=== PATIENT | male | born 1955 | race Caucasian/White ===

== ENCOUNTER 2017-12-13 07:19 | Day surgery (SDC) | payer MEDICAID ==
[2017-12-13] MEDS ORDERED: Lactated Ringers 1,000 ML IV SCH (07:30)
[2017-12-13] MEDS ORDERED: Sodium Chloride 0.9% 10 ML Syringe FLUSH PRN (07:30)
[2017-12-13] MEDS ORDERED: Propofol 200 MG/20 ML SDV IV ONE (08:30)
--- NOTE | 2017-12-13 09:15 | PCM.OPNOTE ---
- General Post-Op/Procedure Note Date of Surgery/Procedure: 12/13/17 Operative Procedure(s): c scope with bx Findings: ascending colon polyp transverse colon polyps x4 sigmoid diverticulosis Pre Op Diagnosis: screening Post-Op Diagnosis: ascending colon polyp. transverse colon polyps x4. sigmoid diverticulosis Anesthesia Technique: MAC Primary Surgeon: Casper Lainez Anesthesia Provider: Ahbi Smith Pathology: ascending colon polyp transverse colon polyps x4 Complications: None Condition: Good Free Text/Narrative:: see dictation
[2017-12-13 11:11] VITALS: BP 123/68
--- NOTE | 2017-12-13 14:39 | OR ---
DATE OF OPERATION: 12/13/2017 SURGEON: Casper Lainez MD PROCEDURES PERFORMED: Colonoscopy with hot loop and cold forceps biopsy. PREOPERATIVE DIAGNOSIS: Colon cancer screening. POSTOPERATIVE DIAGNOSES: Ascending colon polyp, transverse colon polyp x4, and sigmoid diverticulosis. INDICATIONS FOR PROCEDURE: This is a 62-year-old white male who presents for screening colonoscopy. He was offered and accepted same. DESCRIPTION OF OPERATION: After an excellent IV sedation was administered, the colonoscope was inserted and advanced to the cecum without difficulty. The prep was excellent. The following findings were noted. Ascending colon, roughly 1 cm in diameter sessile polyp, biopsied with the hot loop snare and submitted for permanent. Transverse colon, in the proximal half, a total of 4 polyps were encountered, 2 of which were biopsied with the hot loop snare and 2 with cold forceps, and submitted in one container. Descending colon was unremarkable. Sigmoid, mild diverticulosis. Rectum and anus, unremarkable. Colon was deflated as the scope was removed. The patient tolerated the procedure well and was taken to Recovery in a good condition. /[id number] /MODL
== END 2017-12-13 10:08 | disposition home or self-care (01) ==
LOC: FB.SDS 07:19
PROVIDERS: ATTEND Surgery
DX: Z12.11 Encounter for screening for malignant neoplasm of colon (principal); D12.3 Benign neoplasm of transverse colon; K63.5 Polyp of colon; K57.30 Diverticulosis of large intestine without perforation or abscess without bleeding; I10 Essential (primary) hypertension; J44.9 Chronic obstructive pulmonary disease, unspecified; F17.210 Nicotine dependence, cigarettes, uncomplicated; E66.9 Obesity, unspecified; Z68.34 Body mass index [BMI] 34.0-34.9, adult; F41.9 Anxiety disorder, unspecified; Z79.51 Long term (current) use of inhaled steroids; Z79.899 Other long term (current) drug therapy; Z80.0 Family history of malignant neoplasm of digestive organs
CPT/HCPCS: 45380; 45385; 88305; J2704; J7120

== ENCOUNTER 2018-10-12 06:55 | Day surgery (SDC) | payer MEDICAID ==
[2018-10-12] MEDS ORDERED: Lidocaine 2% 100 MG/5 ML Syringe IVPUSH ONE (06:56)
[2018-10-12] MEDS ORDERED: Propofol 200 MG/20 ML SDV IV ONE (06:56)
[2018-10-12] MEDS ORDERED: Lactated Ringers 1,000 ML IV SCH (07:00)
[2018-10-12] MEDS ORDERED: Sodium Chloride 0.9% 10 ML Syringe FLUSH PRN (07:00)
[2018-10-12] MEDS ORDERED: Albuterol/Ipratropium 3.0-0.5 MG/3 ML Neb Soln NEB ONE (07:56)
--- NOTE | 2018-10-12 08:43 | PCM.OPNOTE ---
- General Post-Op/Procedure Note Date of Surgery/Procedure: 10/12/18 Operative Procedure(s): egd with bx Findings: gastritis Pre Op Diagnosis: dyspespsia Post-Op Diagnosis: gastritis determined by endoscopy Anesthesia Technique: VINITA Primary Surgeon: Casper Lainez Anesthesia Provider: Abhi Smith ([facility]) Pathology: stomach Complications: None Condition: Good Free Text/Narrative:: see dictation
[2018-10-12 09:42] VITALS: BP 107/73
--- NOTE | 2018-10-12 16:08 | OR ---
DATE OF OPERATION: 10/12/2018 SURGEON: Casper Lainez MD PROCEDURE PERFORMED: EGD with cold forceps biopsy. PREOPERATIVE DIAGNOSIS: Dyspepsia. POSTOPERATIVE DIAGNOSIS: Gastritis. INDICATIONS FOR PROCEDURE: This is a 63-year-old white male who has a known history of gastritis. He has been treated long-term without resolution of his symptoms of epigastric discomfort. He was offered and accepted an EGD. DESCRIPTION OF OPERATION: After an excellent IV sedation was administered, bite block was inserted. Flexible endoscope was passed without difficulty down the patient's esophagus, into the stomach. The stomach was insufflated. Scope was passed through the pylorus, second portion of the duodenum, and slowly withdrawn. Following findings were noted. Duodenum was unremarkable. Stomach demonstrated very mild gastritis, multiple biopsies were taken. Esophagus was unremarkable. Stomach was deflated. Scope was removed. Results by letter. /[id number] /MODL
== END 2018-10-12 09:43 | disposition home or self-care (01) ==
LOC: FB.SDS 06:55
PROVIDERS: ATTEND Surgery
DX: K29.50 Unspecified chronic gastritis without bleeding (principal); I10 Essential (primary) hypertension; J43.9 Emphysema, unspecified; J45.909 Unspecified asthma, uncomplicated; F17.210 Nicotine dependence, cigarettes, uncomplicated; F41.9 Anxiety disorder, unspecified; E66.9 Obesity, unspecified; Z68.34 Body mass index [BMI] 34.0-34.9, adult; Z79.899 Other long term (current) drug therapy; Z80.0 Family history of malignant neoplasm of digestive organs
CPT/HCPCS: 43239; J2001; J2704; J7120; 88305; 88342; J7620-GY

== ENCOUNTER 2019-12-04 06:28 | Emergency (ER) | payer MEDICARE, OTHER ==
[2019-12-04 06:45] VITALS: BP 120/63; PULSE 81
--- NOTE | 2019-12-04 06:53 | EDM.PDOC ---
ED HPI GENERAL MEDICAL PROBLEM - General Chief Complaint: Skin Complaint Stated Complaint: LESIONS Time Seen by Provider: 12/04/19 06:49 Source of Information: Reports: Patient History Limitations: Reports: No Limitations - History of Present Illness INITIAL COMMENTS - FREE TEXT/NARRATIVE: Two painful lesions in the supra pubic area. Since last Tuesday. Has tried a creaam,with no improvement lower abd Pain Score (Numeric/FACES): 5 - Related Data Allergies Allergy/AdvReac Type Severity Reaction Status Date / Time No Known Allergies Allergy Verified 10/12/18 07:18 Home Meds: Home Meds Losartan [Cozaar] 100 mg PO DAILY 10/15/13 [History] amLODIPine [Norvasc] 2.5 mg PO DAILY 10/15/13 [History] clonazePAM [Clonazepam] 1 mg PO TID 10/15/13 [History] hydroCHLOROthiazide [Hydrochlorothiazide] 12.5 mg PO DAILY 10/15/13 [History] Budesonide/Formoterol Fumarate [Symbicort 80-4.5 MCG] 2 puff INH BID 12/12/17 [History] PARoxetine HCL [Paroxetine HCl] 20 mg PO DAILY 12/12/17 [History] atorvaSTATin [Lipitor] 10 mg PO DAILY 12/12/17 [History] traZODone 100 mg PO BEDTIME PRN 12/12/17 [History] Omeprazole 20 mg PO DAILY 10/11/18 [History] Doxycycline [Vibra-Tabs] 100 mg PO Q12HR #10 tab 12/04/19 [Rx] Past Medical History HEENT History: Reports: Macular Degeneration Cardiovascular History: Reports: Hypertension Respiratory History: Reports: Asthma, Bronchitis, Recurrent, COPD Gastrointestinal History: Reports: Irritable Bowel Syndrome Musculoskeletal History: Reports: Arthritis Other Musculoskeletal History: DISPLACED FRACTURE OF PROXIMAL PHALYNX OF LEFT FINGER, INTERNAL DERANGEMENT OF KNEE Psychiatric History: Reports: Anxiety Endocrine/Metabolic History: Reports: Obesity/BMI 30+ Hematologic History: Reports: None Immunologic History: Reports: None Oncologic (Cancer) History: Reports: None Dermatologic History: Reports: Psoriasis - Infectious Disease History Infectious Disease History: Reports: Chicken Pox, Measles - Past Surgical History HEENT Surgical History: Reports: Oral Surgery, Tonsillectomy, Other (See Below) Other HEENT Surgeries/Procedures: jaw surgery, NECK SURGERY GI Surgical History: Reports: EGD Musculoskeletal Surgical History: Reports: Arthroscopic Knee Social & Family History - Caffeine Use Caffeine Use: Reports: Coffee ED ROS GENERAL - Review of Systems Review Of Systems: Comprehensive ROS is negative, except as noted in HPI. ED EXAM, SKIN/RASH Exam: See Below Text/Narrative:: Two lesions of the suprapubic area skin,red base,yellow,honey colored crusts. Slightly Tender. Exam Limited By: No Limitations General Appearance: Alert Nose: Normal Inspection Course - Vital Signs Last Recorded V/S: Last Vital Signs Temp 97.8 F 12/04/19 06:28 Pulse 81 12/04/19 06:28 Resp 17 12/04/19 06:28 BP 120/63 12/04/19 06:28 Pulse Ox 100 12/04/19 06:28 - Orders/Labs/Meds Meds: Medications Discontinued Medications Generic Name Dose Route Start Last Admin Trade Name Freq PRN Reason Stop Dose Admin Doxycycline Hyclate 1,000 mg 12/04/19 13:05 Vibra-Tabs PO 12/04/19 13:06 .STK-MED ONE Departure - Departure Time of Disposition: 06:52 Disposition: Home, Self-Care 01 Condition: Good Clinical Impression: Impetigo bullosa - Discharge Information Prescriptions: Doxycycline [Vibra-Tabs] 100 mg PO Q12HR #10 tab Instructions: Impetigo, Adult Referrals: Rohini Lee PA-C [Primary Care Provider] - Forms: ED Department Discharge Additional Instructions: please take doxycycline 100mg 1 tab twice a day for 10 days see your primary care after 10 days Sepsis Event Note (ED) - Evaluation Sepsis Screening Result: No Definite Risk - Problem List & Annotations (1) Impetigo bullosa SNOMED Code(s): 233206829 Code(s): L01.03 - BULLOUS IMPETIGO Status: Acute - Problem List Review Problem List Initiated/Reviewed/Updated: Yes - Assessment/Plan Plan: Doxy 100 mg po BID
[2019-12-04] MEDS ORDERED: Doxycycline 100 MG Tab PO ONE (13:05)
== END 2019-12-04 06:59 | disposition home or self-care (01) ==
LOC: FB.ED 06:28
DX: L01.03 Bullous impetigo (principal); I10 Essential (primary) hypertension; J44.9 Chronic obstructive pulmonary disease, unspecified; M19.90 Unspecified osteoarthritis, unspecified site; F41.9 Anxiety disorder, unspecified; E66.9 Obesity, unspecified; Z68.33 Body mass index [BMI] 33.0-33.9, adult; Z79.899 Other long term (current) drug therapy
CPT/HCPCS: 99282; A9270-GY

== ENCOUNTER 2019-12-28 15:54 | Emergency (ER) | payer MEDICARE, OTHER ==
--- NOTE | 2019-12-28 16:01 | EDM.PDOC ---
ED HPI GENERAL MEDICAL PROBLEM - General Stated Complaint: COVID SYMPTOMS Time Seen by Provider: 12/28/19 15:58 Source of Information: Reports: Patient History Limitations: Reports: No Limitations - History of Present Illness INITIAL COMMENTS - FREE TEXT/NARRATIVE: 64-year-old male who reports onset 3-4 days ago of a cough which has progressively worsened with time. 2 days ago he began to have subjective fever with sweats and cough that was worse with phlegm production. He also felt somewhat short of breath associated with this. He has had nausea but no vomiting. He developed diarrhea yesterday and that has persisted today. He has had 2 loose stools today. He reports diffuse body aches that he rates as a 7- 8/10. He also has a mild sore throat. These pains are achy-type pains. There are better rest and worse with movements. He is swallowing okay. He has been drinking liquids well. He has not had much of an appetite but he has been taking by mouth. He reports that his senses of taste and smell are both intact. He feels quite fatigued and has no energy. He does not have any chest pain other than the body ache type pain that he has all over. There are no other associated signs or symptoms. There are no other modifying factors. 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 He does use an inhaler.) - Related Data Allergies Allergy/AdvReac Type Severity Reaction Status Date / Time No Known Allergies Allergy Verified 12/28/19 16:09 Home Meds: Home Meds Losartan [Cozaar] 100 mg PO DAILY 10/15/13 [History] amLODIPine [Norvasc] 2.5 mg PO DAILY 10/15/13 [History] clonazePAM [Clonazepam] 1 mg PO TID 10/15/13 [History] hydroCHLOROthiazide [Hydrochlorothiazide] 12.5 mg PO DAILY 10/15/13 [History] Budesonide/Formoterol Fumarate [Symbicort 80-4.5 MCG] 2 puff INH BID 12/12/17 [History] PARoxetine HCL [Paroxetine HCl] 20 mg PO DAILY 12/12/17 [History] atorvaSTATin [Lipitor] 10 mg PO DAILY 12/12/17 [History] traZODone 100 mg PO BEDTIME PRN 12/12/17 [History] Omeprazole 20 mg PO DAILY 10/11/18 [History] Doxycycline [Vibra-Tabs] 100 mg PO Q12HR #10 tab 12/04/19 [Rx] Azithromycin [Zithromax] 1 dose PO DAILY 5 Days #6 tab 12/28/19 [Rx] predniSONE [Prednisone] 60 mg PO DAILY 5 Days #15 tablet 12/28/19 [Rx] Past Medical History HEENT History: Reports: Macular Degeneration Cardiovascular History: Reports: Hypertension Respiratory History: Reports: Asthma, Bronchitis, Recurrent, COPD Gastrointestinal History: Reports: Irritable Bowel Syndrome Musculoskeletal History: Reports: Arthritis Other Musculoskeletal History: DISPLACED FRACTURE OF PROXIMAL PHALYNX OF LEFT FINGER, INTERNAL DERANGEMENT OF KNEE Psychiatric History: Reports: Anxiety, Depression Endocrine/Metabolic History: Reports: Obesity/BMI 30+ Dermatologic History: Reports: Psoriasis - Infectious Disease History Infectious Disease History: Reports: Chicken Pox, Measles - Past Surgical History HEENT Surgical History: Reports: Oral Surgery, Tonsillectomy, Other (See Below) Other HEENT Surgeries/Procedures: jaw surgery, NECK SURGERY GI Surgical History: Reports: EGD Musculoskeletal Surgical History: Reports: Arthroscopic Knee (Left knee) Social & Family History - Tobacco Use Smoking Status *Q: Current Every Day Smoker - Caffeine Use Caffeine Use: Reports: Coffee - Alcohol Use Alcohol Use History: Yes Alcohol Use Frequency: Daily (1.75 L of rum every 3-4 days.) - Living Situation & Occupation Occupation: Retired ED ROS GENERAL - Review of Systems Review Of Systems: See Below Constitutional: Reports: Fever, Malaise, Weakness, Fatigue, Other (Sweats) HEENT: Reports: Throat Pain (Mild sore throat. No nasal congestion.) Respiratory: Reports: Shortness of Breath, Cough, Sputum Cardiovascular: Reports: No Symptoms GI/Abdominal: Reports: Diarrhea, Nausea. Denies: Vomiting : Reports: No Symptoms Musculoskeletal: Reports: Other (Diffuse body aches) Skin: Reports: Rash (Chronic rash associated with psoriasis. No change.) Neurological: Reports: No Symptoms Hematologic/Lymphatic: Reports: No Symptoms Immunologic: Reports: No Symptoms ED EXAM, GENERAL - Physical Exam Exam: See Below Exam Limited By: No Limitations General Appearance: Alert, Moderate Distress (Appears in some discomfort. No respiratory distress. Nontoxic otherwise.), Obese Eye Exam: Bilateral Eye: EOMI, Normal Inspection Ears: Normal External Exam, Hearing Grossly Normal Ear Exam: Bilateral Ear: Auricle Normal Nose: Normal Inspection, Normal Mucosa, No Blood Throat/Mouth: Normal Inspection, Normal Oropharynx, Normal Voice, No Airway Compromise Head: Atraumatic, Normocephalic Neck: Normal Inspection, Supple, Non-Tender, Full Range of Motion Respiratory/Chest: No Respiratory Distress, Lungs Clear, No Accessory Muscle Use, Chest Non-Tender, Other (Her movement is okay.). No: Crackles, Rales, Rhonchi, Wheezing Cardiovascular: Normal Peripheral Pulses, Regular Rate, Rhythm, No JVD, No Murmur Peripheral Pulses: 2+: Radial (L), Radial (R) GI/Abdominal: Normal Bowel Sounds, Soft, Non-Tender Back Exam: Normal Inspection Extremities: Normal Inspection, Normal Range of Motion, Non-Tender, No Pedal Edema, Normal Capillary Refill Neurological: Alert, Oriented, CN II-XII Intact, Normal Cognition, No Motor/Sensory Deficits Psychiatric: Normal Affect Skin Exam: Warm, Dry, Intact, Normal Color Lymphatic: No Adenopathy Course - Vital Signs Last Recorded V/S: Last Vital Signs Temp 36.7 C 12/28/19 16:00 Pulse 80 12/28/19 16:00 Resp 20 12/28/19 16:00 BP 118/52 L 12/28/19 16:00 Pulse Ox 99 12/28/19 16:00 - Orders/Labs/Meds Orders: Active Orders 24 hr Category Date Time Status CORONAVIRUS COVID-19, [facility] Urgent Lab 12/28/19 16:50 Received INPATIENT Urgent Lab 12/28/19 16:50 Received - Radiology Interpretation Free Text/Narrative:: Chest x-ray PA and lateral shows evidence of COPD but there were no acute infiltrates. - Re-Assessments/Exams Free Text/Narrative Re-Assessment/Exam: 12/28/19 17:15: Patient's chest x-ray shows no evidence of pneumonia. He does have of bronchitis and or exacerbation of COPD we did send a tests for Covid 19 and the results should be back next week some time. The patient is oxygenating normally. He has a normal respiratory rate. There is no evidence of respiratory distress. He has stable vital signs. I have discussed all of this with the patient. I will treat him with Zithromax for a 5 day course and prednisone for a 5 day burst treatment as well. He should increase his fluid intake. He can use Robitussin [id number] as needed for cough. He can also use 1000 mg by mouth every 6 hours as needed for fever or pain. He was told to self quarantine at least until the Covid 19 test comes back. Precautions and reasons for return to the emergency department were discussed with the patient while he was in the emergency department were detailed in the patient's discharge instructions. Departure - Departure Time of Disposition: 17:25 Disposition: Home, Self-Care 01 Condition: Good (Stable) Clinical Impression: COPD with acute exacerbation, Bronchitis - Discharge Information Prescriptions: predniSONE [Prednisone] 60 mg PO DAILY 5 Days #15 tablet Azithromycin [Zithromax] 1 dose PO DAILY 5 Days #6 tab Instructions: Chronic Obstructive Pulmonary Disease Exacerbation, [id number], Acute Bronchitis, Adult, [id number] Referrals: PCP,None [Ordering Only Provider] - Forms: ED Department Discharge Additional Instructions: Your x-ray showed evidence of COPD but there was no definite pneumonia seen. Your blood pressure, pulse and oxygen were all reassuring. We did send testing for Covid 19. The test results will not be back until sometime next week. You should self quarantine until the test results are back. You should also rest and drink plenty of fluids. You may take Tylenol 1000 mg by mouth every is as needed for fever or pain. You also could have an exacerbation of your COPD and I am treating you with an antibiotic (Zithromax) and with an inflammatory (prednisone) for this. Back to the emergency department for worse breathing, unrelenting vomiting, severe weakness or any other concerning sign or symptom. Sepsis Event Note (ED) - Focused Exam Vital Signs: Vital Signs Temp Pulse Resp BP Pulse Ox 12/28/19 16:00 36.7 C 80 20 118/52 L 99 - My Orders Last 24 Hours: My Active Orders 12/28/19 16:50 CORONAVIRUS COVID-19, [facility] Urgent INPATIENT Urgent - Assessment/Plan Last 24 Hours: My Active Orders 12/28/19 16:50 CORONAVIRUS COVID-19, [facility] Urgent INPATIENT Urgent
[2019-12-28 16:16] VITALS: BP 118/52; PULSE 80
--- NOTE | 2019-12-28 17:50 | CR ---
INDICATION: Cough with phlegm production. CHEST, TWO VIEWS: Two PA views and two lateral views of the chest were obtained 12/28/19 and compared with 11/25/17 and 07/15/14. Pulmonary markings appear similar to the previous examination, without a definite active infiltrate or effusion. Diaphragm leaves are somewhat flattened with prominent AP diameter and hyperaeration suggesting COPD - correlate clinically. Lateral pleural thickening is again noted, compatible with pleural fibrosis. The heart, mediastinum and bony thorax were unremarkable. IMPRESSION: 1. No acute process. 2. COPD. 3. Mild ASD aorta with some calcifications noted in the arch of the aorta. MTDD
== END 2019-12-28 17:44 | disposition home or self-care (01) ==
LOC: FB.ED 15:54
DX: J44.1 Chronic obstructive pulmonary disease with (acute) exacerbation (principal); J40 Bronchitis, not specified as acute or chronic; I10 Essential (primary) hypertension; E66.9 Obesity, unspecified; F41.9 Anxiety disorder, unspecified; F32.9 Major depressive disorder, single episode, unspecified; F17.200 Nicotine dependence, unspecified, uncomplicated; Z79.899 Other long term (current) drug therapy; Z68.32 Body mass index [BMI] 32.0-32.9, adult; Z20.828 Contact with and (suspected) exposure to other viral communicable diseases
CPT/HCPCS: 71046; 99283; 99285; U0002

== ENCOUNTER 2020-03-12 05:53 | Emergency (ER) | payer MEDICARE, OTHER ==
--- NOTE | 2020-03-12 06:36 | EDM.PDOC ---
ED HPI GENERAL MEDICAL PROBLEM - General Chief Complaint: Respiratory Problem Stated Complaint: Coughing and congestion Time Seen by Provider: 03/12/20 06:00 Source of Information: Reports: Patient History Limitations: Reports: No Limitations - History of Present Illness INITIAL COMMENTS - FREE TEXT/NARRATIVE: Patient presented to the ED because of cough and and cold for 3-5 days. The cough is non-productive. He said he has fever but his temperature in the ED is 36.7 There is no associated dyspnea but he c/o nausea because he drinks rhum on a daily basis. Denies any abdominal pain. He also has a history of COPD and smokes 1.5 PPD x 30 years. - Related Data Allergies Allergy/AdvReac Type Severity Reaction Status Date / Time No Known Allergies Allergy Verified 03/12/20 06:07 Home Meds: Home Meds Losartan [Cozaar] 100 mg PO DAILY 10/15/13 [History] amLODIPine [Norvasc] 2.5 mg PO DAILY 10/15/13 [History] clonazePAM [Clonazepam] 1 mg PO TID 10/15/13 [History] hydroCHLOROthiazide [Hydrochlorothiazide] 12.5 mg PO DAILY 10/15/13 [History] Budesonide/Formoterol Fumarate [Symbicort 80-4.5 MCG] 2 puff INH BID 12/12/17 [History] atorvaSTATin [Lipitor] 10 mg PO DAILY 12/12/17 [History] traZODone 100 mg PO BEDTIME PRN 12/12/17 [History] Albuterol [Proventil HFA] 2 puff INH Q4H PRN #1 inhaler 03/12/20 [Rx] Amoxicillin/Clavulanate K [Augmentin 875-125 MG] 1 tab PO BID #20 tablet 03/12/20 [Rx] Lansoprazole [Prevacid] 30 mg PO DAILY 03/12/20 [History] Montelukast [Singulair] 10 mg PO DAILY 03/12/20 [History] Sertraline HCl 50 mg PO DAILY 03/12/20 [History] predniSONE [Prednisone] 40 mg PO QAM #10 tablet 03/12/20 [Rx] Past Medical History HEENT History: Reports: Macular Degeneration Cardiovascular History: Reports: Hypertension Respiratory History: Reports: Asthma, Bronchitis, Recurrent, COPD Gastrointestinal History: Reports: Irritable Bowel Syndrome Musculoskeletal History: Reports: Arthritis Other Musculoskeletal History: DISPLACED FRACTURE OF PROXIMAL PHALYNX OF LEFT FINGER, INTERNAL DERANGEMENT OF KNEE Neurological History: Reports: Concussion Psychiatric History: Reports: Anxiety, Depression Other Psychiatric History: ETOH abuse Endocrine/Metabolic History: Reports: Obesity/BMI 30+ Other Endocrine/Metabolic History: prediabetic Hematologic History: Reports: None Immunologic History: Reports: None Oncologic (Cancer) History: Reports: None Dermatologic History: Reports: Psoriasis Other Dermatologic History: hx impetigo - Infectious Disease History Infectious Disease History: Reports: Chicken Pox, Measles - Past Surgical History HEENT Surgical History: Reports: Oral Surgery, Tonsillectomy, Other (See Below) Other HEENT Surgeries/Procedures: jaw surgery, NECK SURGERY GI Surgical History: Reports: EGD Musculoskeletal Surgical History: Reports: Arthroscopic Knee (Left knee) Social & Family History - Family History Family Medical History: Noncontributory - Caffeine Use Caffeine Use: Reports: Coffee - Living Situation & Occupation Occupation: Retired ED ROS GENERAL - Review of Systems Review Of Systems: See Below Constitutional: Reports: No Symptoms HEENT: Reports: No Symptoms Respiratory: Reports: Cough. Denies: Sputum Cardiovascular: Reports: No Symptoms Endocrine: Reports: No Symptoms GI/Abdominal: Reports: Nausea. Denies: Abdominal Pain, Vomiting : Reports: No Symptoms Musculoskeletal: Reports: No Symptoms Skin: Reports: No Symptoms Neurological: Reports: No Symptoms Psychiatric: Reports: No Symptoms ED EXAM, GENERAL - Physical Exam Exam: See Below Exam Limited By: No Limitations General Appearance: Alert, No Apparent Distress Ears: Normal External Exam, Normal Canal, Hearing Grossly Normal Nose: Normal Inspection, Normal Mucosa, No Blood Throat/Mouth: Normal Inspection, Normal Lips, Normal Teeth Head: Atraumatic, Normocephalic Neck: Normal Inspection, Supple, Non-Tender, Full Range of Motion Respiratory/Chest: No Respiratory Distress, Wheezing Cardiovascular: Normal Peripheral Pulses, Regular Rate, Rhythm, No Edema, No Gallop, No JVD, No Murmur GI/Abdominal: Normal Bowel Sounds, Soft, Non-Tender, No Organomegaly, No Distention Back Exam: Normal Inspection, Full Range of Motion Extremities: Normal Inspection Course - Vital Signs Text/Narrative:: CXR-see result Last Recorded V/S: Last Vital Signs Temp 36.5 C 03/12/20 05:53 Pulse 88 03/12/20 05:53 Resp 20 03/12/20 05:53 BP 149/72 H 03/12/20 05:53 Pulse Ox 96 03/12/20 05:53 - Orders/Labs/Meds Orders: Active Orders 24 hr Category Date Time Status Chest 1V Frontal [CR] Stat Exams 03/12/20 06:43 Stop Req Chest 2V [CR] Stat Exams 03/12/20 06:46 Ordered CBC WITH AUTO DIFF [HEME] Stat Lab 03/12/20 06:43 Ordered Departure - Departure Time of Disposition: 15:30 Disposition: Home, Self-Care 01 Condition: Good Clinical Impression: COPD exacerbation - Discharge Information Prescriptions: Amoxicillin/Clavulanate K [Augmentin 875-125 MG] 1 tab PO BID #20 tablet predniSONE [Prednisone] 40 mg PO QAM #10 tablet Albuterol [Proventil HFA] 2 puff INH Q4H PRN #1 inhaler PRN Reason: wheezing/Dyspnea Instructions: Chronic Obstructive Pulmonary Disease Exacerbation, [id number] Referrals: PCP,None [Primary Care Provider] - Forms: ED Department Discharge Additional Instructions: Please read discharge instructions on COPD exacerbation Quit smoking while being treated Prednisone 29 mg, 2 tablets every morning for 5 days Augmentin 875 mg, 1 tablet twice daily for 10 days Albuterol inhaler, 2 puffs every 4-6 hours as needed for wheezing and coughing Follow up as needed Sepsis Event Note (ED) - Evaluation Sepsis Screening Result: No Definite Risk - Focused Exam Vital Signs: Vital Signs Temp Pulse Resp BP Pulse Ox 03/12/20 05:53 36.5 C 88 20 149/72 H 96 - My Orders Last 24 Hours: My Active Orders 03/12/20 06:43 Chest 1V Frontal [CR] Stat CBC WITH AUTO DIFF [HEME] Stat 03/12/20 06:46 Chest 2V [CR] Stat - Assessment/Plan Last 24 Hours: My Active Orders 03/12/20 06:43 Chest 1V Frontal [CR] Stat CBC WITH AUTO DIFF [HEME] Stat 03/12/20 06:46 Chest 2V [CR] Stat
[2020-03-12 08:06] VITALS: BP 122/99; PULSE 85
--- NOTE | 2020-03-12 13:03 | CR ---
INDICATION: Cough, COPD. CHEST TWO VIEWS: Two PA views and a lateral view of the chest were obtained 03/12/20 and compared with 12/28/19 and 07/15/14. Findings remain compatible with COPD. An active infiltrate or effusion was not identified. Calcification is noted in the arch of the aorta to a minimal degree with the heart and mediastinum otherwise unremarkable. Bony structures appear to be unremarkable. IMPRESSION: 1. No acute process. 2. COPD. 3. Minimal ASD aorta. MTDD
== END 2020-03-12 07:25 | disposition home or self-care (01) ==
LOC: FB.ED 05:53
DX: J44.1 Chronic obstructive pulmonary disease with (acute) exacerbation (principal); I10 Essential (primary) hypertension; F41.9 Anxiety disorder, unspecified; F32.9 Major depressive disorder, single episode, unspecified; E66.9 Obesity, unspecified; Z68.32 Body mass index [BMI] 32.0-32.9, adult; Z79.899 Other long term (current) drug therapy
CPT/HCPCS: 36415; 71046; 85025; 93005; 99284-25

== ENCOUNTER 2021-10-13 14:20 | Emergency (ER) | payer MEDICARE ==
[2021-10-13] MEDS ORDERED: Sodium Chloride 0.9% 10 ML Syringe FLUSH PRN (14:56)
[2021-10-13] MEDS ORDERED: Ketorolac 30 MG/ML SDV IM ONE (14:59)
[2021-10-13] MEDS ORDERED: Alum Hydroxide/Mag Hydroxide 15 ML, Lidocaine 2% 15 ML PO ONE ×2 (14:59)
[2021-10-13 15:42] LABS: ESTIMATED GFR > 60 (>60)
[2021-10-13 21:47] VITALS: BP 139/79; PULSE 67
== END 2021-10-13 17:55 | disposition home or self-care (01) ==
LOC: FB.ED 14:20
DX: J44.9 Chronic obstructive pulmonary disease, unspecified (principal); F41.9 Anxiety disorder, unspecified; R09.1 Pleurisy; I10 Essential (primary) hypertension; E66.9 Obesity, unspecified; Z68.30 Body mass index [BMI] 30.0-30.9, adult; Z79.899 Other long term (current) drug therapy
CPT/HCPCS: 36415; 71045; 73030-LT; 80053; 83880; 84484; 85025; 93005; 93010; 96372; 99283; 99285-25; A9270-GY; J1885

== ENCOUNTER 2022-03-06 12:51 | Emergency (ER) | payer MEDICAID, MEDICARE ==
[2022-03-06] MEDS ORDERED: traMADol 50 MG Tab PO ONE (12:52)
[2022-03-06 14:30] VITALS: BP 138/77; PULSE 81
== END 2022-03-06 14:00 | disposition home or self-care (01) ==
LOC: FB.ED 12:51
DX: R07.89 Other chest pain (principal); J45.909 Unspecified asthma, uncomplicated; I10 Essential (primary) hypertension; F17.210 Nicotine dependence, cigarettes, uncomplicated; E66.9 Obesity, unspecified; Z68.27 Body mass index [BMI] 27.0-27.9, adult; Z79.899 Other long term (current) drug therapy
CPT/HCPCS: 99284; A9270

== ENCOUNTER 2022-08-21 17:00 | Inpatient (IN) | payer MEDICARE ==
[2022-08-21 17:26] LABS: ESTIMATED GFR 66 mL/min (>60)
[2022-08-21 17:32] LABS: ACETAMINOPHEN < 2 ug/mL (<2)
[2022-08-21 17:32] LABS: BASE EXCESS VENOUS,POC -4 mmol/L (-2 - 3+); PCO2 VENOUS,POC 35 mmHg (41-51); PH VENOUS,POC 7.37 pH Units (7.32-7.43)
[2022-08-21] MEDS ORDERED: Ondansetron 4 MG/2 ML SDV IVPUSH ONE (18:16)
[2022-08-21] MEDS ORDERED: Cyclobenzaprine 10 MG Tab PO ONE (18:26)
[2022-08-21] MEDS ORDERED: Cyclobenzaprine 10 MG Tab ONE (18:27)
[2022-08-21] MEDS ORDERED: Sodium Chloride 0.9% 1,000 ML IV ONE (18:47)
[2022-08-21] MEDS ORDERED: LORazepam 2 MG/ML SDV IVPUSH ONE (18:47)
[2022-08-21] MEDS ORDERED: Thiamine 200 MG/2 ML MDV IVPUSH ONE (18:58)
[2022-08-21] MEDS ORDERED: Sucralfate 1 GM Tab PO ONE (19:02)
[2022-08-21] MEDS ORDERED: Iopamidol 755 Mg/ML 100 ML Bottle IV ONE (20:34)
[2022-08-21] MEDS ORDERED: LORazepam 2 MG/ML SDV IV PRN (21:23)
[2022-08-21] MEDS ORDERED: Ondansetron 4 MG/2 ML SDV IV PRN (21:23)
[2022-08-21] MEDS: Enoxaparin 30 MG/0.3 ML Syringe SUBCUT SCH (22:44)
[2022-08-22 06:58] LABS: ESTIMATED GFR 66 mL/min (>60)
[2022-08-22] MEDS ORDERED: Albuterol 8 GM Inhaler INH PRN (08:57)
[2022-08-22] MEDS ORDERED: Acetaminophen 500 MG Tab PO PRN (08:59)
[2022-08-22] MEDS ORDERED: Propranolol 80 MG Cap.ER PO SCH (09:00)
[2022-08-22] MEDS ORDERED: Acetaminophen 500 MG Tab PO SCH (09:00)
[2022-08-22] MEDS ORDERED: Formoterol/Mometasone 100-5 MCG 8.8 GM Inhaler IH SCH (09:00)
[2022-08-22] MEDS ORDERED: Sodium Chloride 0.9% 10 ML Syringe FLUSH PRN (09:11)
[2022-08-22] MEDS: Sertraline 100 MG Tab PO SCH (10:06)
[2022-08-22] MEDS: ClonazePAM 0.5 MG Tab PO SCH ×2 (10:07→21:03)
[2022-08-22] MEDS: atorvaSTATin 10 MG Tab PO SCH (10:07)
[2022-08-22] MEDS: Ibuprofen 200 MG Tab PO SCH ×2 (10:13→16:59)
[2022-08-22] MEDS: Acetaminophen 500 MG Tab PO SCH ×2 (10:13→16:59)
[2022-08-22] MEDS ORDERED: Thiamine 100 MG Tab PO SCH (21:00)
[2022-08-22] MEDS ORDERED: traZODone 50 MG Tab PO SCH (21:00)
[2022-08-22] MEDS ORDERED: traZODone 100 MG Tab PO SCH (21:00)
[2022-08-22] MEDS: Enoxaparin 30 MG/0.3 ML Syringe SUBCUT SCH (21:03)
[2022-08-23] MEDS: Ibuprofen 200 MG Tab PO SCH ×2 (02:00→09:20)
[2022-08-23] MEDS: Acetaminophen 500 MG Tab PO SCH ×2 (02:00→09:19)
[2022-08-23 07:14] LABS: ESTIMATED GFR 82 mL/min (>60)
[2022-08-23] MEDS ORDERED: Baclofen 10 MG Tab PO PRN (09:13)
[2022-08-23] MEDS: atorvaSTATin 10 MG Tab PO SCH (09:19)
[2022-08-23] MEDS: Sertraline 100 MG Tab PO SCH (09:21)
[2022-08-23] MEDS: ClonazePAM 0.5 MG Tab PO SCH (09:27)
[2022-08-23] MEDS ORDERED: amLODIPine 2.5 MG Tab PO SCH (09:30)
[2022-08-23] MEDS ORDERED: Pantoprazole 40 MG Tab.CR PO SCH (09:30)
[2022-08-23 14:40] VITALS: BP 164/87; PULSE 60
[2022-08-23] MEDS ORDERED: traZODone 100 MG Tab PO SCH (21:00)
== END 2022-08-23 14:10 | disposition home or self-care (01) | DRG 918 ==
LOC: FB.ED 17:00 → FB.MS 21:23
PROVIDERS: ADMIT Family Medicine; ATTEND Family Medicine
DX: T53.5X1A Toxic effect of chlorofluorocarbons, accidental (unintentional), initial encounter (principal); G93.40 Encephalopathy, unspecified; R44.3 Hallucinations, unspecified; F10.20 Alcohol dependence, uncomplicated; K21.9 Gastro-esophageal reflux disease without esophagitis; F41.9 Anxiety disorder, unspecified; F32.A Depression, unspecified; I10 Essential (primary) hypertension; M62.838 Other muscle spasm; J43.9 Emphysema, unspecified; F17.210 Nicotine dependence, cigarettes, uncomplicated; M17.11 Unilateral primary osteoarthritis, right knee; H35.30 Unspecified macular degeneration; E78.00 Pure hypercholesterolemia, unspecified; E66.9 Obesity, unspecified; L40.9 Psoriasis, unspecified; Z90.89 Acquired absence of other organs; Z98.890 Other specified postprocedural states; Z79.899 Other long term (current) drug therapy; Z59.00 Homelessness unspecified; Z68.26 Body mass index [BMI] 26.0-26.9, adult
CPT/HCPCS: 36415; 70450; 71046; 74177; 80048; 80053; 80143; 80179; 80307; 82140; 83605; 83690; 83735; 84484; 85025; 86140; 93005; 93010; 96361; 96374; 96375; 97161-GP; 99223; 99238; 99285; 99285-25; A9270-GY; J1650; J2060; J2405; J3411; J7030; Q9967